=== PATIENT | male | born 1985 | race Two or more races ===

== ENCOUNTER 2024-06-06 10:50 | Emergency (ER) | payer MEDICAID ==
[~2024-06-06] VITALS: Ht 172.7 cm; Wt 91.9 kg
[~2024-06-06 10:50] MED LIST: CAPT25TA3 PO
[2024-06-06 10:58] VITALS: TEMP 98
[2024-06-06 12:03] LABS: BASOPHILS % (AUTO) 0.4 % (0-1); EOSINOPHILS # (AUTO) 0.1 X10'3 (0-0.9); EOSINOPHILS % (AUTO) 0.9 % (0-6); HEMOGLOBIN 14.4 g/dl (14.0-17.9); LYMPHOCYTES # (AUTO) 1.9 X10'3 (1.1-4.8); LYMPHOCYTES % (AUTO) 30.5 % (21-51); MEAN CORPUSCULAR HEMOGLOBIN 27.4 PG (27.0-31.0); MEAN CORPUSCULAR HGB CONC 32.7 g/dL (33.0-36.5); MEAN CORPUSCULAR VOLUME 83.9 FL (78-98); MEAN PLATELET VOLUME 7.5 FL (7.4-10.4); MONOCYTES # (AUTO) 0.5 X10'3 (0-0.9); MONOCYTES % (AUTO) 8.5 % (2-12); NEUTROPHILS # (AUTO) 3.8 X10'3 (1.8-7.7); NEUTROPHILS % (AUTO) 59.7 % (42-75); PLATELET COUNT 300 X10'3 (140-440); RED BLOOD COUNT 5.24 X10'6 (4.70-6.10); RED CELL DISTRIBUTION WIDTH 15.2 % (11.5-14.5); WHITE BLOOD COUNT 6.3 X10'3 (4.5-11.0)
[2024-06-06] MEDS ORDERED: HYDR-3686 PO (13:24)
[2024-06-06 13:41] LABS: ALANINE AMINOTRANSFERASE 25 U/L (12-78); ALBUMIN/GLOBULIN RATIO 1.2 (1.1-1.5); ALKALINE PHOSPHATASE 60 IU/L (46-116); ANION GAP 5 (8-16); ASPARTATE AMINO TRANSFERASE 12 U/L (10-37); BILIRUBIN,TOTAL 0.5 MG/DL (0.1-1.0); BLOOD UREA NITROGEN 15 MG/DL (7-18); BUN/CREATININE RATIO 15.8 (10.0-20.0); CALCIUM 9.1 MG/DL (8.5-10.1); CHLORIDE 105 MMOL/L (99-107); CREATININE 0.95 MG/DL (0.60-1.10); GLUCOSE 101 MG/DL (70-104); SODIUM 141 MMOL/L (135-145); TOTAL CARBON DIOXIDE 30.9 MMOL/L (24-32); TOTAL PROTEIN 7.3 G/DL (6.4-8.2); eCRCL 101 ML/MIN; eGFR 88 ML/MIN
[2024-06-06 13:45] VITALS: BP 122/84; PULSE 60; RESP 15; O2SAT 97
[2024-06-06 13:53] LABS: PRO BRAIN NATRIURETIC PEPTIDE < 30 PG/ML (0-125)
== END 2024-06-06 14:03 | disposition home or self-care (01) ==
LOC: ER 10:51
DX: I10 Essential (primary) hypertension (principal); F41.9 Anxiety disorder, unspecified; Z88.0 Allergy status to penicillin; Z79.899 Other long term (current) drug therapy
CPT/HCPCS: 36415; 71045; 80053; 83880; 84484; 85025; 93005; 99285

== ENCOUNTER 2025-03-19 21:44 | Emergency (ER) | payer MEDICAID ==
[~2025-03-19] VITALS: Ht 162.6 cm; Wt 168.2 kg
[2025-03-19 23:39] LABS: MEAN PLATELET VOLUME 7.0 FL (7.4-10.4); RED CELL DISTRIBUTION WIDTH 15.5 % (11.5-14.5)
[2025-03-19 23:45] LABS: CREATININE 1.06 MG/DL (0.60-1.10); TOTAL CARBON DIOXIDE 29.1 MMOL/L (24-32); eCRCL 78 ML/MIN; eGFR 78 ML/MIN
[2025-03-20 01:01] LABS: LEUKOCYTE ESTERASE ,URINE NEGATIVE (Neg); NITRITES, URINE NEGATIVE (Neg); OCCULT BLOOD,URINE NEGATIVE (Neg)
[2025-03-20 01:06] LABS: UA COLLECTION TYPE CLN CATCH MIDSTREAM
[2025-03-20] MEDS ORDERED: CAPT25TA3 PO (01:21)
--- NOTE | 2025-03-20 01:21 | Physician Documentation ---
History of Present Illness ~ Chief Complaint: Hypertension Stated Complaint: HIGH BLOOD PRESSURE Time Seen by MD: 01:04 Primary Medical Doctor: none Mode of Arrival: POV HPI Patient presents to the emergency room for evaluation of his blood pressure. Patient had a strange pain in his face yesterday which prompted him take his vitals and noted that has 170 systolic. He had some old medication for blood pressures therefore he took it and then today continued to be high therefore he took it again Medication Reconciliation Allergies: Coded Allergies: Penicillins (Unverified Allergy, Unknown, unk - childhood, 03/19/25) Scheduled Captopril (Captopril), 1 TAB PO DAILY Review of Systems ROS All review of systems negative except as per HPI Physical Exam Vital Signs: Temperature: 97.8, Source: Temporal, Heart Rate: 60, Respiratory Rate: 16, BP: 150/103, Pulse Oximetry: 99, Weight: 168.200 Oxygen Flow Rate: 0 Physical Exam General: Patient is awake, alert, oriented x4 in no acute distress and well appearing.~ Head: Normocephalic and atraumatic. Eyes: Conjunctival normal. EOMI. PERRL. ENT: Mucous membranes moist. Neck: Supple, trachea is midline. Chest: Clear to auscultation bilaterally without rales, rhonchi, or wheezes. There is no accessory muscle use or retractions. Cardiac: RRR without murmurs, gallops, or rubs. Abd: Soft, nondistended, nontender, with normoactive bowel sounds. No guarding, rebound, or rigidity. . Progress Results/Orders Results/Orders Vital Signs 03/19/25 03/20/25 03/20/25 21:47 00:26 00:33 Temp 97.8 Pulse 70 60 Resp 16 18 16 B/P (MAP) 165/100 150/103 (119) Pulse Ox 100 99 O2 Flow Rate 0 Laboratory Tests Test 03/19/25 23:26 03/20/25 00:36 White Blood Count 8.1 Red Blood Count 5.55 Hemoglobin 15.0 Hematocrit 45.6 Mean Corpuscular Volume 82.2 Mean Corpuscular Hemoglobin 27.0 Mean Corpuscular Hemoglobin Concent 32.9 L Red Cell Distribution Width 15.5 H Platelet Count 335 Mean Platelet Volume 7.0 L Neutrophils (%) (Auto) 49.6 Lymphocytes (%) (Auto) 38.5 Monocytes (%) (Auto) 9.1 Eosinophils (%) (Auto) 2.2 Basophils (%) (Auto) 0.6 Neutrophils # (Auto) 4.0 Lymphocytes # (Auto) 3.1 Monocytes # (Auto) 0.7 Eosinophils # (Auto) 0.2 Basophils # (Auto) 0.0 CBC Comment Sodium Level 139 Potassium Level 3.9 Chloride Level 104 Carbon Dioxide Level 29.1 Anion Gap 6 L Blood Urea Nitrogen 19 H Creatinine 1.06 Estimated GFR/1.73 m2 78 BUN/Creatinine Ratio 17.9 Glucose Level 103 Calcium Level 8.5 Albumin 3.8 Chemistry Comments Urine Specimen Description Cln catch midstream Urine Color Yellow Urine Clarity Clear Urine pH 6.0 Urine Specific Leblanc >=1.030 Urine Protein Negative Urine Glucose (UA) Negative Urine Ketones Negative Urine Occult Blood Negative Urine Nitrite Negative Urine Bilirubin Negative Urine Urobilinogen 0.2 Urine Leukocyte Esterase Negative Urine Culture Indicated Not ind Volume Urine Centrifuged 10 ml Urine Comment Medical Decision Making Additional information obtaine: N/A Findings Patient presents to the emergency room with elevated blood pressures. Differentials include but are not limited to hypertensive emergency, uncontrolled hypertension, acute kidney injury, liver failure therefore emergent labs ordered which were reassuring. Patient's blood pressures improved spontaneously. I will give a refill of his usual medications with instructions to follow up with his doctor. No evidence of end-organ damage. Differential Dx:Considerations: Include HTN, accelerated Departure Disposition: 01 HOME / SELF CARE / HOMELESS Impression: Primary Impression: Uncontrolled hypertension Condition: Improved Discharge Instructions: Hypertension, Adult Referrals: NO PRIMARY CARE PROVIDER (PCP) Prescriptions Captopril (Captopril) 25 Mg Tablet 1 TAB PO Q12H for 30 Days, #60 TAB 0 Refills Prov: DUGLAS MUIR MD 03/20/25 Signature Scribe Signature: No scribe Attestation: The note accurately reflects work and decisions made by me.Duglas Muir MD 03/20/25 01:21 DUGLAS MUIR MD Mar 20, 2025 01:21
[2025-03-20 01:50] VITALS: BP 122/86; PULSE 60; RESP 12; TEMP 97.8; O2SAT 96
== END 2025-03-20 01:51 | disposition home or self-care (01) ==
LOC: ER 21:45
DX: I10 Essential (primary) hypertension (principal); Z88.0 Allergy status to penicillin; Z79.899 Other long term (current) drug therapy
CPT/HCPCS: 36415; 80048; 81003; 85025; 99283